=== PATIENT | male | born 1985 | race Caucasian/White ===

== ENCOUNTER 2022-01-21 06:43 | Emergency (ER) | payer BC ==
[2022-01-21 07:42] LABS: HEMOGLOBIN 15.2 gm/dl (14.0-17.5); RED BLOOD COUNT 4.89 M/UL (4.20-5.50); WHITE BLOOD COUNT 6.6 K/UL (4.5-11.0)
[2022-01-21 08:00] LABS: BUN/CREATININE RATIO 11 (0-10)
[2022-01-21] MEDS ORDERED: TORADOL 10 MG T10 MG PO (09:08)
[2022-01-21] MEDS ORDERED: ZOFRAN 4 MG TAB4 MG PO (09:08)
[2022-01-21] MEDS ORDERED: FLOMAX0.4 MG PO (09:09)
[2022-01-21] MEDS ORDERED: HYDROCODON-ACE1 EAC4 PO (09:17)
== END 2022-01-21 09:57 | disposition home or self-care (01) ==
LOC: ER1 06:43
PROVIDERS: Physician Assistant
DX: N13.2 Hydronephrosis with renal and ureteral calculous obstruction (principal); F17.200 Nicotine dependence, unspecified, uncomplicated
CPT/HCPCS: 80053; 81001; 85025; 96374; 96375; 99284; J1885; J2405